=== PATIENT | female | born 1955 | race Caucasian/White ===

== ENCOUNTER 2021-10-21 00:53 | Day surgery (SDC) | payer OTHER, SELFPAY ==
[2021-09-30 13:18] VITALS: BMI 26.6
[2021-10-21 09:45] VITALS: BP 122/87; PULSE 53; RESP 18; TEMP 36.3; O2SAT 100; BMI 25.9
[2021-10-21] MEDS: LACTATED RINGERS 1,000 ML 150 ML IV CONT (10:04)
--- NOTE | 2021-10-21 10:26 | WPDANESEPPF ---
Anes - Initial Pre Proc Eval Procedure: Operation Date: 10/21/21 11:00 Proposed Procedures p Screening Colonoscopy - Ovi Garcia MD Date/Time: 10/21/21 10:26 Surgeon: Ovi Garcia MD Pre Op Diagnosis: family hx of colon ca Patient Data Age: 65 Gender: F Height: 1.55 m Weight: 62.2 kg Last Vital Signs Temp 36.3 C L 10/21/21 09:45 Pulse 53 L 10/21/21 09:45 Resp 18 10/21/21 09:45 BP 122/87 10/21/21 09:45 Pulse Ox 100 10/21/21 09:45 O2 Del Method Room Air 10/21/21 09:45 Allergies Allergy/AdvReac Type Severity Reaction Status Date / Time MIDAZOLAM HCL Allergy Severe Chest Pain Uncoded 10/21/21 09:53 Home Medications Medication Instructions Recorded Confirmed Type sodium sul 1.479 gram-potas ch See Rx Instructions PO PER PKG DIR 09/20/21 10/21/21 Rx 0.188 gram-magnes sul 0.225 gram #24 tabs tablet (Sutab) hydrochlorothiazide 25 mg tablet 25 mg PO DAILY 09/30/21 10/21/21 History losartan 25 mg tablet 25 mg PO DAILY 09/30/21 10/21/21 History Patient hx anesthesia problems: none Family hx anesthesia problems: none Results Review: All pre-operative results and documents have been reviewed as part of the pre-operative evaluation. [facility] Social History Social History Smoking status: Never smoker Alcohol intake: current Drinks per week: 3 Substance use: never Substance use type: does not use Living arrangements: alone Spiritual care concerns: No Anes - Eval Final PreProcedure Day of Procedure 10/21/21 10:26 Patient weight: normal Heart: regular rate and rhythm Lungs: clear to auscultation and normal air movement Airway: Mallampati scale class II Neurological: alert and oriented Last oral intake: >/= 8 hours ASA classification: II Emergent: no Anesthetic plan: proceed Anesthesia type and monitoring: general GIVS Results Review: All pre-operative results and documents have been reviewed as part of the pre-operative evaluation. Informed Consent: The patient's anesthetic plan and its attendant risks and benefits were discussed with the patient/family/POA. Questions were solicited and answers provided to the satisfaction of the patient/family/POA.
--- NOTE | 2021-10-21 10:27 | PM.HPGS ---
History of Present Illness History of Present Illness Consent: Risks, benefits, and alternatives have been discussed and questions answered. Patient agrees to proceed with procedure. Chief complaint: family hx of colon ca Narrative: Nasra Benitez is a 65 year old female Referred for colon cancer screening. She has a family history of colon cancer in her father. Review of Systems Review of Systems: All systems reviewed & are unremarkable except as noted in HPI and below PMFSH Social History Social History Smoking status: Never smoker Alcohol intake: current Drinks per week: 3 Substance use: never Substance use type: does not use Living arrangements: alone Spiritual care concerns: No Meds Home Medications and Allergies Home Medications Medication Instructions Recorded Confirmed Type sodium sul 1.479 gram-potas ch See Rx Instructions PO PER PKG DIR 09/20/21 10/21/21 Rx 0.188 gram-magnes sul 0.225 gram #24 tabs tablet (Sutab) hydrochlorothiazide 25 mg tablet 25 mg PO DAILY 09/30/21 10/21/21 History losartan 25 mg tablet 25 mg PO DAILY 09/30/21 10/21/21 History Allergies Allergy/AdvReac Type Severity Reaction Status Date / Time MIDAZOLAM HCL Allergy Severe Chest Pain Uncoded 10/21/21 09:53 Vital Signs Vital Signs - 24 hr 10/21/21 09:45 Temperature 36.3 C L Pulse Rate 53 L Respiratory Rate 18 Blood Pressure 122/87 Pulse Oximetry 100 Oxygen Delivery Room Air Exam Const: General: alert Orientation/consciousness: patient oriented x3 Resp: Auscultation: clear to auscultation bilaterally Cardio: Rhythm: regular rhythm GI: GI Palp: Yes Soft to palpation and No Tenderness to palpation present (GI) Neuro: General: patient oriented x3 Assessment and Plan Assessment and plan (1) Colon cancer screening: Code(s): Z12.11 - Encounter for screening for malignant neoplasm of colon Status: Acute Assessment and Plan: Colonoscopy with possible biopsy or polypectomy or cautery or injection of substances.
[2021-10-21 11:16] VITALS: BP 116/84; PULSE 67; RESP 22; O2SAT 100
[2021-10-21 11:26] VITALS: BP 121/85; PULSE 65; RESP 20; O2SAT 100
[2021-10-21 11:36] VITALS: BP 125/81; PULSE 56; RESP 21; O2SAT 100
== END 2021-10-21 11:47 | disposition home or self-care (01) ==
PROVIDERS: Visit Provider Internal Medicine Gastroenterology
PROC: 0DJD8ZZ Inspection of Lower Intestinal Tract, Via Natural or Artificial Opening Endoscopic (ICD-10-PCS; CPT 45378; principal; 2021-10-21 11:00)
DX: Z12.11 Encounter for screening for malignant neoplasm of colon (principal); K57.30 Diverticulosis of large intestine without perforation or abscess without bleeding; Z80.0 Family history of malignant neoplasm of digestive organs
CPT/HCPCS: 45378; J2704; J7120